=== PATIENT | female | born 1950 | race Native Hawaiian/Other Pacific Islander ===

== ENCOUNTER 2016-12-28 15:25 | Outpatient (CLI) | payer OTHER ==
[~2016-12-28 15:25] MED LIST: ALPR0.5T24 PO; FENT50DI TD; FLUC150T PO; HYDR-2748 PO; HYDR50CA21 PO; LEVO0.0723 PO; MACRODANTIN100 MG OR; NEURONTIN600 MG PO; NEXIUM40 M1 OR; NYSTCRE EX; PRAV40TA PO; TRAZODONE150 MG PO
== END 2016-12-28 19:42 | disposition home or self-care (01) ==
LOC: RAD 15:25
DX: M17.11 Unilateral primary osteoarthritis, right knee (principal); M17.12 Unilateral primary osteoarthritis, left knee; R07.82 Intercostal pain

== ENCOUNTER 2017-01-26 13:21 | Outpatient (CLI) | payer OTHER | END 2017-01-26 19:10 | disposition home or self-care (01) | LOC: MRI 13:21 | DX: M54.5 Low back pain (principal) ==

== ENCOUNTER → 2017-08-08 14:44 | Outpatient (CLI) | payer OTHER | END | disposition home or self-care (01) | LOC: MRI 14:30 | DX: M25.561 Pain in right knee (principal) ==

== ENCOUNTER 2017-09-03 12:34 | Outpatient (CLI) | payer OTHER | END 2017-09-03 19:38 | disposition home or self-care (01) | LOC: RAD 12:34 | DX: M25.561 Pain in right knee (principal) ==

== ENCOUNTER 2018-12-30 14:22 | Outpatient (CLI) | payer OTHER | END 2018-12-30 19:41 | disposition home or self-care (01) | LOC: MRI 14:22 | DX: M48.062 Spinal stenosis, lumbar region with neurogenic claudication (principal) | CPT/HCPCS: 36415; 82565; 84520; A9576 ==

== ENCOUNTER 2019-03-06 21:05 | Emergency (ER) | payer OTHER ==
[~2019-03-06] VITALS: Ht 162.6 cm; Wt 67.1 kg
[2019-03-06 23:00] VITALS: BP 130/79; TEMP 98.7
== END 2019-03-06 23:00 | disposition home or self-care (01) ==
LOC: ED 21:05
DX: N34.2 Other urethritis (principal)
CPT/HCPCS: 81000; 96372; 99283; J1885

== ENCOUNTER 2019-03-20 12:53 | Emergency (ER) | payer OTHER ==
[~2019-03-20] VITALS: Ht 162.6 cm; Wt 62.6 kg
[2019-03-20 12:59] VITALS: TEMP 97.9
[2019-03-20 14:00] LABS: PLATELET COUNT 190 K/uL (152-353)
[2019-03-20 14:08] LABS: POTASSIUM 3.4 mmol/L (3.6-5.2)
[2019-03-20 15:46] VITALS: BP 112/68
== END 2019-03-20 15:47 | disposition home or self-care (01) ==
LOC: ED 12:53
PROVIDERS: Emergency Medicine
DX: K59.09 Other constipation (principal); E86.0 Dehydration
CPT/HCPCS: 36415; 80053; 81000; 85027; 96360; 99284

== ENCOUNTER 2021-07-20 13:20 | Emergency (ER) | payer OTHER ==
[~2021-07-20] VITALS: Ht 160 cm; Wt 72.6 kg
[2021-07-20 13:25] VITALS: BP 131/94; TEMP 97.4
== END 2021-07-20 16:12 | disposition home or self-care (01) ==
LOC: ED 13:20
DX: M54.31 Sciatica, right side (principal); N32.81 Overactive bladder
CPT/HCPCS: 81000; 82272; 96372; 99283; J1885

== ENCOUNTER 2022-03-24 09:58 | Outpatient (CLI) | payer OTHER ==
[2022-03-24 10:24] LABS: PLATELET COUNT 243 K/uL (152-353)
[2022-03-24 11:05] LABS: PARTIAL THROMBOPLASTIN TIME 24.3 SECONDS (24.5-33.6)
== END 2022-03-24 19:07 | disposition home or self-care (01) ==
LOC: LAB 09:58
PROVIDERS: ATTEND Nurse Practitioner Family
DX: I10 Essential (primary) hypertension (principal); E03.8 Other specified hypothyroidism; R58 Hemorrhage, not elsewhere classified
CPT/HCPCS: 80053; 84439; 84443; 85027; 85610; 85730

== ENCOUNTER 2022-04-13 14:31 | Outpatient (CLI) | payer OTHER | END 2022-04-13 19:26 | disposition home or self-care (01) | LOC: RAD 14:31 | PROVIDERS: ATTEND Internal Medicine | DX: Z13.820 Encounter for screening for osteoporosis (principal); N95.8 Other specified menopausal and perimenopausal disorders ==

== ENCOUNTER 2022-10-03 15:48 | Emergency (ER) | payer OTHER ==
[~2022-10-03] VITALS: Ht 160 cm; Wt 77.1 kg
[2022-10-03 16:00] VITALS: BP 124/71; TEMP 98.2
== END 2022-10-03 16:30 | disposition home or self-care (01) ==
LOC: ED 15:48
DX: H60.8X1 Other otitis externa, right ear (principal); T16.1XXA Foreign body in right ear, initial encounter; X58.XXXA Exposure to other specified factors, initial encounter; Y92.89 Other specified places as the place of occurrence of the external cause
CPT/HCPCS: 99282

== ENCOUNTER 2022-11-18 16:09 | Outpatient (CLI) | payer OTHER | END 2022-11-18 18:55 | disposition home or self-care (01) | LOC: RAD 16:09 | PROVIDERS: ATTEND Orthopaedic Surgery | DX: M25.561 Pain in right knee (principal) ==

== ENCOUNTER 2022-11-24 11:03 | Emergency (ER) | payer OTHER ==
[~2022-11-24] VITALS: Ht 160 cm; Wt 78.9 kg
[2022-11-24 11:04] VITALS: TEMP 98.1
[2022-11-24 12:42] VITALS: BP 122/67
== END 2022-11-24 13:00 | disposition home or self-care (01) ==
LOC: ED 11:03
DX: M25.561 Pain in right knee (principal)
CPT/HCPCS: 96372; 99283; J1885

== ENCOUNTER → 2022-12-12 | Outpatient (CLI) | payer OTHER | LOC: RAD 15:44 | PROVIDERS: ATTEND Orthopaedic Surgery | DX: Z96.651 Presence of right artificial knee joint (principal) ==